=== PATIENT | male | born 1985 | race Caucasian/White ===

== ENCOUNTER 2017-02-03 06:35 | Emergency (ER) | payer BC ==
[2017-02-03] MEDS ORDERED: HYDROcodone/APAP 5/325 TABLET ONE (08:52)
== END 2017-02-03 13:35 | disposition home or self-care (01) ==
LOC: ED 06:35
DX: S42.021A Displaced fracture of shaft of right clavicle, initial encounter for closed fracture (principal); Z88.0 Allergy status to penicillin; V29.9XXA Motorcycle rider (driver) (passenger) injured in unspecified traffic accident, initial encounter; Y93.55 Activity, bike riding; Y92.89 Other specified places as the place of occurrence of the external cause; Y99.8 Other external cause status
CPT/HCPCS: 99284